=== PATIENT | male | born 1970 | race Caucasian/White ===

== ENCOUNTER 2017-02-20 12:58 | Emergency (ER) | payer OTHER ==
[~2017-02-20] VITALS: Ht 170.2 cm; Wt 72.0 kg
[2017-02-20 13:03] VITALS: Ht 170.2 cm; Wt 72.0 kg
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
[2017-02-20] MEDS ORDERED: morphine 4 MG/ML VIAL IV STA (13:09)
[2017-02-20] MEDS ORDERED: ONDANSETRON 4 MG INJ IV STA (13:09)
[2017-02-20] MEDS ORDERED: HYDROmorphONE 1 MG/ML SYG IV STA (13:54)
--- NOTE | 2017-02-20 14:11 | RADRPT ---
PROCEDURE: Chest Radiograph. CLINICAL INDICATION: Chest pain after trauma TECHNIQUE: Single frontal chest radiograph. COMPARISON: None available FINDINGS: The cardiomediastinal silhouette is within normal limits. There is no pneumothorax. No infiltrate o r effusion is seen. There is a partially visualized comminuted left mid to distal clavicular frac ture.. IMPRESSION: 1. No evidence of acute cardiopulmonary disease. 2. Left clavicular fracture. RPTAT: KK .Celestine Swartz MD, Date Time Electronically viewed and signed by .Celestine Swartz MD, on 02/20/2017 14:10 .B/
--- NOTE | 2017-02-20 14:17 | RADRPT ---
PROCEDURE: XR Shoulder. CLINICAL INDICATION: Left shoulder pain after trauma TECHNIQUE: Two views of the left shoulder are available for review. COMPARISON: None available FINDINGS: There is a mildly displaced and comminuted left mid to distal clavicular fracture. The glenohumeral joint and acromioclavicular joint appear intact. The remainder of the bones of the shoulder are wi thin normal limits. The visualized portions of the left rib cage are unremarkable. There is soft t issue tenting from the proximal fracture fragment. IMPRESSION: 1. Left clavicular fracture . RPTAT: KK .Celestine Swartz MD, MD Date Time Electronically viewed and signed by .Celestine Swartz MD, MD on 02/20/2017 14:16 .B/
--- NOTE | 2017-02-20 14:18 | RADRPT ---
PROCEDURE: XR clavicle CLINICAL INDICATION: Left clavicle pain after trauma TECHNIQUE: Two views of the left clavicle are available for review. COMPARISON: None available FINDINGS: There is a mildly comminuted and moderately displaced left mid to distal shaft clavicular fracture. The acromioclavicular joint remains intact. The proximal fracture fragment is angulated superiorly and tenting the soft tissues. The glenohumeral joint appears intact. IMPRESSION: 1. Left clavicular fracture. RPTAT: KK .Celestine Swartz MD, MD Date Time Electronically viewed and signed by .Celestine Swartz MD, on 02/20/2017 14:17 .B/
--- NOTE | 2017-02-20 14:19 | RADRPT ---
PROCEDURE: Right hand series CLINICAL INDICATION: Right hand pain after trauma TECHNIQUE: Three views of the right hand were obtained. COMPARISON: No prior studies are available for comparison. FINDINGS: There is normal mineralization and alignment of the bones of the right hand. There is no evidence o f acute fracture or dislocation. Joint spaces are well maintained. There is no evidence of osteoph yte formation or erosions. The soft tissues are within normal limits. IMPRESSION: 1. Unremarkable right hand series. RPTAT: KK .Celestine Swartz MD, Date Time Electronically viewed and signed by .Celestine Swartz MD, MD on 02/20/2017 14:18 .B/
[2017-02-20] MEDS ORDERED: HYDR-902 PO (15:21)
[2017-02-20 15:22] VITALS: BP 116/84; PULSE 72; RESP 18; TEMP 98.6
[2017-02-20] MEDS ORDERED: KETOROLAC 30 MG INJ IV STA (15:23)
[2017-02-20] MEDS ORDERED: HYDROCODONE/APAP (10/325) TAB PO ONE (16:30)
== END 2017-02-20 17:01 | disposition home or self-care (01) ==
LOC: E/R 12:58
DX: S42.002A Fracture of unspecified part of left clavicle, initial encounter for closed fracture (principal); R40.2252 Coma scale, best verbal response, oriented, at arrival to emergency department; R40.2142 Coma scale, eyes open, spontaneous, at arrival to emergency department; R40.2362 Coma scale, best motor response, obeys commands, at arrival to emergency department; R07.9 Chest pain, unspecified; V18.4XXA Pedal cycle driver injured in noncollision transport accident in traffic accident, initial encounter
CPT/HCPCS: 71010; 73000; 73030; 73130; 96374; 96375; 99284; J1170; J1885; J2270; J2405